=== PATIENT | male | born 1995 | race Caucasian/White ===

== ENCOUNTER 2019-05-03 09:54 | Emergency (ER) | payer BC ==
[~2019-05-03] VITALS: Ht 180.3 cm; Wt 62.1 kg
[2019-05-03 10:04] VITALS: BP 155/88
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
--- NOTE | 2019-05-03 10:52 | NUR ---
DR TEMPLETON AT BEDSIDE
[2019-05-03 11:57] VITALS: BP 143/79
== END 2019-05-03 11:57 | disposition home or self-care (01) ==
LOC: MED 09:54
DX: S63.610A Unspecified sprain of right index finger, initial encounter (principal); Y04.0XXA Assault by unarmed brawl or fight, initial encounter; Y93.89 Activity, other specified; Y92.89 Other specified places as the place of occurrence of the external cause; Y99.8 Other external cause status
CPT/HCPCS: 73130; 99283

== ENCOUNTER 2021-06-27 17:05 | Emergency (ER) | payer SELFPAY ==
[~2021-06-27] VITALS: Ht 182.9 cm; Wt 74.8 kg
[2021-06-27 17:16] VITALS: BP 117/63
--- NOTE | 2021-06-27 17:16 | NUR ---
Patient to wait in tent.
--- NOTE | 2021-06-27 17:20 | NUR ---
25 y/o M BIB self from home c/o Covid-19 symptoms since 06/25/2021. Patient states myalgia, chills, dry cough, runny nose, headache, loss of taste/smell, SOB. Pt states Nyquil yesterday and today without relief. Oral temperature 103.3. States pain 9/10 to headache. Denies any SOB, chest pain, nausea, vomiting. SpO2 99% on room air; no distress noted at this time. PMH/Sx/Meds: Denies
[2021-06-27] MEDS ORDERED: ACETAMINOPHEN EXTRA STRENGTH 500 MG TAB PO ONE (17:35)
[2021-06-27] MEDS ORDERED: PROM118S5 PO (18:39)
[2021-06-27] MEDS ORDERED: IBUP-2213 PO (18:39)
--- NOTE | 2021-06-27 19:08 | NUR ---
Patient discharged with v/s stable. Written and verbal after care instructions ABOUT COVID 19 given and explained. Patient alert, oriented and verbalized understanding of instructions. Ambulatory with steady gait. All questions addressed prior to discharge. ID band removed. Patient advised to follow up with PMD. Rx of IBUPROFEN AND PROMETHAZINE given. Patient educated on indication of medication including possible reaction and side effects. Opportunity to ask questions provided and answered.
== END 2021-06-27 19:08 | disposition home or self-care (01) ==
LOC: MED 17:05
DX: U07.1 COVID-19 (principal)
CPT/HCPCS: 71045; 87426; 99284; U0003